=== PATIENT | male | born 1935 | race Caucasian/White ===

== ENCOUNTER 2017-03-12 16:55 | Emergency (ER) | payer OTHER ==
[2017-03-12 17:19] VITALS: BP 170/84; PULSE 55; RESP 20; TEMP 96; O2SAT 98
== END 2017-03-12 18:02 | disposition home or self-care (01) | DRG 125 ==
LOC: ED 16:55
DX: H53.9 Unspecified visual disturbance (principal)
CPT/HCPCS: 99282

== ENCOUNTER 2018-10-13 12:15 | Outpatient (CLI) | payer OTHER | END 2018-10-13 12:16 | disposition home or self-care (01) | LOC: CONVCARE 12:15 ==